=== PATIENT | female | born 1960 | race Caucasian/White ===

== ENCOUNTER 2021-10-17 23:53 | Emergency (ER) | payer SELFPAY ==
[~2021-10-17] VITALS: Ht 132.1 cm; Wt 67.2 kg
[~2021-10-17 23:53] MED LIST: CLOP75TA PO
[2021-10-18] VITALS: BP 154/70
--- NOTE | 2021-10-18 00:03 | NUR ---
to lobby a/w bed ambulatory
--- NOTE | 2021-10-18 01:00 | NUR ---
61 Y/O F BIB SELF WITH C/O RT SHOULDER PAIN X2 DAYS. PT STATES PAIN DOES NOT GO AWAY AND THATS WHY SHE CAME IN. STATES SHE DID NOT FALL OR GET INTO ACCIDENT. SHE TOOK TYLENOL BUT DOES NOT PROVIDE MUCH RELIEF . PT STATES NAUSEA , VOMITNG CLEAR WITH FOOD IF SHE ATE AND DENIES DIARRHEA; SKIN IS PINK/WARM/DRY; AAOX4 WITH EVEN AND STEADY GAIT; LUNGS CLEAR BL; HR EVEN AND REGULAR; PT DENIES ANY FEVER, CP, SOB, OR COUGH AT THIS TIME; PATIENT STATES PAIN OF 10/10 AT THIS TIME; VSS; PT DENIES SMOKING/ DRUGS. BEDRAILS UP X2; BED DOWN. ER MADE AWARE OF PT STATUS. PMH: NONE ALLERGIES:NONE RX: NONE OTC TYLENOL
--- NOTE | 2021-10-18 01:17 | NUR ---
DR. COATS AT BEDSIDE FOR EVALUATION
[2021-10-18] MEDS ORDERED: KETOROLAC 30 MG/ML VIAL IM ONE (01:25)
--- NOTE | 2021-10-18 02:00 | NUR ---
PT AMBULATED TO RESTROOM. EVEN AND STEADY GAIT
[2021-10-18] MEDS ORDERED: NAPR-54 PO (02:19)
[2021-10-18 02:30] VITALS: BP 125/59
--- NOTE | 2021-10-18 02:30 | NUR ---
Patient discharged with v/s stable. Written and verbal after care instructions given and explained. Patient alert, oriented and verbalized understanding of instructions. Ambulatory with steady gait. All questions addressed prior to discharge. ID band removed. Patient advised to follow up with PMD. Rx of NAPROSYN given. Opportunity to ask questions provided and answered.
--- NOTE | 2021-10-18 02:44 | NUR ---
The patient's care was reviewed and supervised by Patricia Chicas RN.
== END 2021-10-18 02:30 | disposition home or self-care (01) ==
LOC: MED 23:53
DX: M25.511 Pain in right shoulder (principal); R11.0 Nausea; Z79.899 Other long term (current) drug therapy
CPT/HCPCS: 73030; 81025; 93005; 96372; 99285; J1885; Q0092

== ENCOUNTER 2024-02-26 17:01 | Emergency (ER) | payer SELFPAY ==
[~2024-02-26] VITALS: Ht 165.1 cm; Wt 68.0 kg
[~2024-02-26 17:01] MED LIST changes: +NAPR-337 PO
[2024-02-26 17:55] VITALS: BP 141/70; PULSE 83; RESP 18; TEMP 98.3; O2SAT 98
[2024-02-26 20:44] LABS: APPEARANCE,URINE SLIGHTLY HAZY (CLEAR); BILIRUBIN,URINE NEGATIVE (NEGATIVE); BLOOD, URINE NEGATIVE (NEGATIVE); COLOR,URINE YELLOW (YELLOW); LEUKOCYTE ESTERASE ,URINE TRACE (NEGATIVE); NITRITE, URINE NEGATIVE (NEGATIVE); PROTEIN,URINE NEGATIVE (NEGATIVE); UGLUCOSE NEGATIVE (NEGATIVE); UROBILINOGEN,URINE 0.2 EU/dL (0.2 - 1)
[2024-02-26 20:45] LABS: BASOPHILS # (AUTO) 0.1 K/uL (0.00-0.22); BASOPHILS % (AUTO) 0.4 % (0.0-2.0); EOSINOPHILS # (AUTO) 0.2 K/uL (0-0.4); EOSINOPHILS % (AUTO) 1.4 % (0.0-4.0); HEMOGLOBIN 12.8 g/dL (12.0-16.0); LYMPHOCYTES # (AUTO) 3.4 K/uL (2.5-16.5); LYMPHOCYTES % (AUTO) 26.6 % (20.5-51.1); MEAN CORPUSCULAR HEMOGLOBIN 27 pg (27-31); MEAN CORPUSCULAR HGB CONC 33 g/dL (33-37); MONOCYTES # (AUTO) 0.7 K/uL (0.8-1.0); MONOCYTES % (AUTO) 5.3 % (1.7-9.3); NEUTROPHILS # (AUTO) 8.5 K/uL (1.8-7.7); NEUTROPHILS % (AUTO) 66.3 % (42.2-75.2); PLATELET COUNT (AUTO) 389 K/uL (140-450); RED BLOOD CELL COUNT(AUTO) 4.75 MIL/uL (4.20-5.40); RED CELL DISTRIBUTION WIDTH 15.1 % (11.6-13.7); WHITE BLOOD COUNT (AUTO) 12.9 K/uL (4.8-10.8)
[2024-02-26 20:45] LABS: RBC,URINE 0 /HPF (0-5); WBC,URINE 0-5 /HPF (0-5)
[2024-02-26 20:46] LABS: BACTERIA,URINE 1+ /HPF (None Seen); MUCUS,URINE 1+ /LPF (None Seen); SQUAMOUS EPITHELIAL CELL,UR 0-3 (FEW) /LPF (0-3 (FEW))
[2024-02-26 21:07] LABS: ANION GAP 15.5 (8-16); CALCIUM 9.3 mg/dL (8.5-10.1); CARBON DIOXIDE 24.3 mmol/L (21-32); CREATININE 0.8 mg/dL (0.6-1.3); POTASSIUM 3.8 mmol/L (3.5-5.1)
[2024-02-26 21:21] LABS: THYROID STIMULATING HORMONE 1.41 uIU/mL (0.34-3.74)
== END 2024-02-26 21:53 | disposition home or self-care (01) ==
LOC: MED 17:01
DX: R55 Syncope and collapse (principal); R03.0 Elevated blood-pressure reading, without diagnosis of hypertension; R07.89 Other chest pain; M25.511 Pain in right shoulder; M79.604 Pain in right leg; R11.2 Nausea with vomiting, unspecified; Z90.49 Acquired absence of other specified parts of digestive tract; Z79.1 Long term (current) use of non-steroidal anti-inflammatories (NSAID)
CPT/HCPCS: 36415; 71045; 73030; 80048; 81001; 84443; 84484; 85025; 93005; 99285